=== PATIENT | male | born 1960 | race Hispanic/Latino ===

== ENCOUNTER 2016-07-27 18:21 | Emergency (ER) | payer SELFPAY ==
--- NOTE | 2016-07-27 22:35 | Emergency Department Report ---
ED General Adult HPI - General Chief complaint: Skin Rash Stated complaint: Wound Check Time Seen by Provider: 07/27/16 20:46 Source: patient Mode of arrival: Ambulatory Limitations: No Limitations - History of Present Illness Initial comments: This is a 55-year-old male well-nourished with nontoxic or ill in appearance that complaining of possibility of skin cancer on his back. Patient stated has had a circular lesion with pus and drainage for 6 months. Patient denies any trauma to the area. Denies history of cancer. Denies fever, chills, abdominal pain, nausea vomiting, chest pain, shortness of breath, headache. Associated symptoms includes pus and drainage to the area. Patient denies any pain to the area. He denies any allergies. Patient stated has been using [id number] triple antibiotic ointment with no relief. Denies any past medical history. Patient stated does not have a primary care doctor due to insurance purposes. MD Complaint: cellulitis vs skin cancer -: Gradual, month(s) (6) Location: back Radiation: non-radiation Improves with: none Worsens with: none Associated Symptoms: denies other symptoms. denies: confusion, chest pain, cough, diaphoresis, fever/chills, headaches, loss of appetite, malaise, nausea/ vomiting, rash, seizure, shortness of breath, syncope, weakness Treatments Prior to Arrival: none - Related Data Previous Rx's Medication Instructions Recorded Last Taken Type Cephalexin [Keflex] 500 mg PO Q8HR 7 Days 07/27/16 Unknown Rx Sulfamethoxazole/Trimethoprim 1 each PO BID 7 Days 07/27/16 Unknown Rx [Bactrim DS TAB] Allergies Allergy/AdvReac Type Severity Reaction Status Date / Time No Known Allergies Allergy Unverified 07/27/16 19:41 ED Review of Systems ROS: Stated complaint: Wound Check Other details as noted in HPI Constitutional: denies: chills, fever Eyes: denies: eye pain, eye discharge, vision change ENT: denies: ear pain, throat pain Respiratory: denies: cough, shortness of breath, wheezing Cardiovascular: denies: chest pain, palpitations Endocrine: no symptoms reported Gastrointestinal: denies: abdominal pain, nausea, diarrhea Genitourinary: denies: urgency, dysuria Musculoskeletal: denies: back pain, joint swelling, arthralgia Skin: lesions (3 cm circular erythema with pus). denies: rash, change in color , change in hair/nails, pruritus Neurological: denies: headache, weakness, paresthesias Psychiatric: denies: anxiety, depression Hematological/Lymphatic: denies: easy bleeding, easy bruising ED Past Medical Hx - Past Medical History Previous Medical History?: No - Surgical History Past Surgical History?: No - Social History Smoking Status: Current Some Day Smoker Substance Use Type: None - Medications Home Medications: Home Medications Medication Instructions Recorded Confirmed Last Taken Type Cephalexin [Keflex] 500 mg PO Q8HR 7 Days 07/27/16 Unknown Rx Sulfamethoxazole/Trimethoprim 1 each PO BID 7 Days 07/27/16 Unknown Rx [Bactrim DS TAB] ED Physical Exam - General Limitations: No Limitations General appearance: alert, in no apparent distress - Head Head exam: Present: atraumatic, normocephalic, normal inspection - Eye Eye exam: Present: normal appearance, PERRL, EOMI. Absent: scleral icterus, conjunctival injection, nystagmus Pupils: Present: normal accommodation - ENT ENT exam: Present: normal exam, normal orophraynx, mucous membranes moist, TM's normal bilaterally, normal external ear exam - Neck Neck exam: Present: normal inspection, full ROM. Absent: tenderness, meningismus, lymphadenopathy, thyromegaly - Respiratory Respiratory exam: Present: normal lung sounds bilaterally. Absent: respiratory distress, wheezes, rales, rhonchi, stridor - Cardiovascular Cardiovascular Exam: Present: regular rate, normal rhythm, normal heart sounds. Absent: bradycardia, tachycardia, irregular rhythm, systolic murmur, diastolic murmur, rubs, gallop - GI/Abdominal GI/Abdominal exam: Present: soft, normal bowel sounds. Absent: distended, tenderness, guarding, rebound, rigid - Rectal Rectal exam: Present: deferred - Extremities Exam Extremities exam: Present: normal inspection, full ROM, normal capillary refill. Absent: tenderness, pedal edema, joint swelling, calf tenderness - Back Exam Back exam: Present: normal inspection, full ROM. Absent: tenderness, CVA tenderness (R), CVA tenderness (L), muscle spasm, paraspinal tenderness, vertebral tenderness, rash noted - Neurological Exam Neurological exam: Present: alert, oriented X3, CN II-XII intact, normal gait - Psychiatric Psychiatric exam: Present: normal affect, normal mood. Absent: depressed, agitated - Skin Skin exam: Present: warm, dry, intact, normal color, other (3 cm x 3 cm circular erythema with pus and drainage noted.). Absent: rash, cyanosis, diaphoretic, erythema, urticaria, vesicles, petechiae, pallor, abrasion, ecchymosis ED Course Vital Signs 07/27/16 19:39 Temperature 99.3 F Pulse Rate 66 Respiratory 18 Rate Blood Pressure 148/90 O2 Sat by Pulse 100 Oximetry ED Medical Decision Making - Medical Decision Making ED course: This is a 55-year-old male that presents with open wound cellulitis with pus and drainage 1- After my physical exam, patient received Keflex and Bactrim PO at the time of d/c. 2- Patient was instructed to f/u with his PCP in 3-5 days for possible of biopsy of skin if pt is worried about skin cancer 3- at time time of discharge, the patient does not seem toxic or ill in appearance. No acute signs of distress noted. Patient agrees to discharge treatment plan of care. No further questions noted by the patient.. Critical care attestation.: If time is entered above; I have spent that time in minutes in the direct care of this critically ill patient, excluding procedure time. ED Disposition Clinical Impression: Cellulitis Qualifiers: Site of cellulitis: unspecified site Qualified Code(s): L03.90 - Cellulitis, unspecified Disposition: DISCHARGED TO HOME OR SELFCARE Is pt being admited?: No Does the pt Need Aspirin: No Condition: Stable Instructions: Cellulitis (ED) Additional Instructions: Take full course of antibiotics as prescribed. Follow-up with her primary care doctor in 3-5 days or if symptoms worsen report back to emergency. If you're concerned about skin cancer you can follow-up with her primary care doctor and he/she may schedule for a skin biopsy. Prescriptions: Cephalexin [Keflex] 500 mg PO Q8HR 7 Days Sulfamethoxazole/Trimethoprim [Bactrim DS TAB] 1 each PO BID 7 Days Referrals: ARGENTINA DUENAS MD [Primary Care Provider] - 3-5 Days [facility] [Outside] - 3-5 Days [facility] [place] [Outside] - 3-5 Days KAREN KERR MD [Staff Physician] - 3-5 Days Forms: Work/School Release Form(ED)
[2016-07-28 00:26] VITALS: BP 142/82
== END 2016-07-28 00:27 | disposition home or self-care (01) ==
LOC: ED 18:21
DX: L03.312 Cellulitis of back [any part except buttock and flank] (principal); F17.200 Nicotine dependence, unspecified, uncomplicated
CPT/HCPCS: 99282